=== PATIENT | female | born 1980 | race African-American/Black ===

== ENCOUNTER 2017-10-10 12:22 | Emergency (ER) | payer OTHER ==
[~2017-10-10] VITALS: Ht 167.6 cm; Wt 109.0 kg
[~2017-10-10 12:22] MED LIST: AMOXICILLIN875 MG PO; METFORMIN500 M2 PO; ULTRAM50 MG PO
[2017-10-10] MEDS ORDERED: MOTRIN400 MG PO (12:55)
[2017-10-10 13:05] VITALS: BP 143/84
== END 2017-10-10 13:05 | disposition home or self-care (01) | DRG 563 ==
LOC: ED 12:22
PROC: 2W3UX1Z Immobilization of Right Toe using Splint (ICD-10-PCS; principal; 2017-10-10)
DX: S92.511A Displaced fracture of proximal phalanx of right lesser toe(s), initial encounter for closed fracture (principal); F41.9 Anxiety disorder, unspecified; J45.909 Unspecified asthma, uncomplicated; W51.XXXA Accidental striking against or bumped into by another person, initial encounter; Y92.009 Unspecified place in unspecified non-institutional (private) residence as the place of occurrence of the external cause

== ENCOUNTER 2019-10-19 22:46 | Emergency (ER) | payer BC ==
[~2019-10-19] VITALS: Ht 167.6 cm; Wt 118.2 kg
[~2019-10-19 22:46] MED LIST changes: +MOTRIN400 MG PO
[2019-10-20] MEDS ORDERED: TAM75CAP PO (00:47)
[2019-10-20 00:52] VITALS: BP 138/70
== END 2019-10-20 00:52 | disposition home or self-care (01) | DRG 153 ==
LOC: ED 22:46
DX: J11.1 Influenza due to unidentified influenza virus with other respiratory manifestations (principal)

== ENCOUNTER 2022-04-23 18:06 | Observation (INO) | payer BC ==
[~2022-04-23] VITALS: Ht 167.6 cm; Wt 122.0 kg
[2022-04-23] VITALS (10 sets, daily range): BP systolic 126–169; BP diastolic 76–106
[~2022-04-23 18:06] MED LIST changes: +TAM75CAP PO
[2022-04-23 19:13] LABS: HEMATOCRIT 38.7 % (37.0-47.0); HEMOGLOBIN 12.2 g/dl (12.0-16.0); IMMATURE GRANULOCYTES 0.1 % (0.0-5.0); MEAN CORPUSCULAR HGB 27.6 pG CALC (26.0-32.0); MEAN CORPUSCULAR HGB CONC 31.5 g/dL CAL (32.0-36.0); NEUT# 5.16 thou/uL (2.00-7.15); RED BLOOD COUNT 4.42 mill/uL (4.20-5.60); RED CELL DISTRI WIDTH 12.8 % (11.5-15.5)
[2022-04-23 19:16] LABS: MEAN CELL VOLUME 87.6 fL CALC (80.0-100.0)
[2022-04-23 19:18] LABS: ALBUMIN 3.9 g/dL (3.2-5.0); ALKALINE PHOSPHATASE 62 u/l (38-126); BUN 11 mg/dL (7-17); BUN/CREATININE RATIO 11 (12-20 (CALC)); CHLORIDE 105 mmol/l (95-108); GFR FOR AFR.AMER. > 60 ML/MIN (>=60 (CALC)); GFR OTHER RACES > 60 ML/MIN (>=60 (CALC)); LIPASE 204 u/l (23-300); POTASSIUM 3.7 mmol/l (3.5-5.1); SGOT/AST 17 u/l (14-36); SODIUM 139 mmol/l (137-146); TOTAL PROTEIN 7.2 g/dL (6.3-8.2)
[2022-04-23 19:25] LABS: ANION GAP 12 (6-22 (CALC)); BILIRUBIN, TOTAL 0.1 mg/dL (0.0-1.4); CARBON DIOXIDE 26 mmol/l (22-30); INTERNATIONAL NORMALIZED RATIO 0.9 RATIO (0.7-1.3); PROTHROMBIN TIME 9.9 SECONDS (9.0-12.5)
[2022-04-23 19:30] LABS: MYOGLOBIN 30 ng/mL (0 - 62)
[2022-04-23 19:34] LABS: URINE BILIRUBIN - DIPSTICK NEGATIVE (NEGATIVE); URINE BLOOD DIPSTICK TRACE-INTACT (NEGATIVE); URINE COLOR YELLOW; URINE GLUCOSE - DIPSTICK NEGATIVE (NEGATIVE); URINE KETONE NEGATIVE (NEGATIVE); URINE LEUK ESTERASE NEGATIVE (NEGATIVE); URINE PROTEIN - DIPSTICK NEGATIVE (NEG-TRACE); URINE SPECIFIC GRAVITY 1.025; URINE UROBILINOGEN - DIPSTICK 0.2 E.U./dL (0.2)
[2022-04-23 19:41] LABS: URINE NITRITE - DIPSTICK NEGATIVE (Negative)
[2022-04-23 20:07] LABS: ACT PARTIAL THROMBO TIME 26.3 SECONDS (20.0-32.5)
[2022-04-23 20:18] LABS: D-DIMER 0.38 mg/L (0.19-0.60)
[2022-04-24 00:19] VITALS: BP 128/79
[2022-04-24 04:07] VITALS: BP 139/90
[2022-04-24 04:43] LABS: CHOLESTEROL HDL RATIO 3.5 (<4.4 (CALC))
[2022-04-24 06:51] VITALS: BP 141/83
[2022-04-24] MEDS ORDERED: NEXIUM20 MG PO (09:22)
[2022-04-24] MEDS ORDERED: OZEMPIC2 MG/1.5 M IJ (09:23)
[2022-04-24] MEDS ORDERED: ZYRTEC10 M5 PO (09:24)
[2022-04-24 10:34] VITALS: BP 142/93
[2022-04-24 13:05] VITALS: BP 122/87
== END 2022-04-24 14:54 | disposition home or self-care (01) | DRG 392 ==
LOC: ED 18:06 → ED-I 20:47 → ED 21:00 → MS2 21:01
PROVIDERS: Family Medicine; Nurse Practitioner; ADMIT Internal Medicine; ATTEND Internal Medicine
PROC: 0DB98ZX Excision of Duodenum, Via Natural or Artificial Opening Endoscopic, Diagnostic (ICD-10-PCS; principal; 2022-04-24)
PROC: 0DB78ZX Excision of Stomach, Pylorus, Via Natural or Artificial Opening Endoscopic, Diagnostic (ICD-10-PCS; 2022-04-24)
PROC: 0DB58ZX Excision of Esophagus, Via Natural or Artificial Opening Endoscopic, Diagnostic (ICD-10-PCS; 2022-04-24)
DX: K21.00 Gastro-esophageal reflux disease with esophagitis, without bleeding (principal); K29.50 Unspecified chronic gastritis without bleeding; K29.80 Duodenitis without bleeding; K44.9 Diaphragmatic hernia without obstruction or gangrene; J45.909 Unspecified asthma, uncomplicated; G47.30 Sleep apnea, unspecified; Z87.19 Personal history of other diseases of the digestive system; Z20.822 Contact with and (suspected) exposure to COVID-19
CPT/HCPCS: G0378; S0164

== ENCOUNTER 2022-07-01 17:28 | Emergency (ER) | payer OTHER, BC ==
[~2022-07-01] VITALS: Ht 167.6 cm; Wt 122.7 kg
[2022-07-01] VITALS (12 sets, daily range): BP systolic 113–149; BP diastolic 73–88
[~2022-07-01 17:28] MED LIST changes: +NEXIUM20 MG PO; +OZEMPIC2 MG/1.5 M IJ; +ZYRTEC10 M5 PO
[2022-07-01 18:28] LABS: HEMOGLOBIN 12.4 g/dl (12.0-16.0); IMMATURE GRANULOCYTES 0.2 % (0.0-5.0); MEAN CELL VOLUME 86.7 fL CALC (80.0-100.0); MEAN CORPUSCULAR HGB 27.6 pG CALC (26.0-32.0); MEAN CORPUSCULAR HGB CONC 31.8 g/dL CAL (32.0-36.0); NEUT# 2.26 thou/uL (2.00-7.15); RED BLOOD COUNT 4.5 mill/uL (4.20-5.60); RED CELL DISTRI WIDTH 12.9 % (11.5-15.5)
[2022-07-01 18:33] LABS: ALBUMIN 3.6 g/dL (3.2-5.0); ALKALINE PHOSPHATASE 57 u/l (38-126); ANION GAP 11 (6-22 (CALC)); BUN 12 mg/dL (7-17); BUN/CREATININE RATIO 11 (12-20 (CALC)); CARBON DIOXIDE 28 mmol/l (22-30); CHLORIDE 105 mmol/l (95-108); CREATININE 1.1 mg/dL (0.5-1.0); GFR FOR AFR.AMER. > 60 ML/MIN (>=60 (CALC)); GFR OTHER RACES 55 ML/MIN (>=60 (CALC)); POTASSIUM 3.9 mmol/l (3.5-5.1); SGOT/AST 16 u/l (14-36); SODIUM 140 mmol/l (137-146); TOTAL PROTEIN 6.4 g/dL (6.3-8.2)
[2022-07-01 18:46] LABS: BILIRUBIN, TOTAL 0.2 mg/dL (0.0-1.4)
[2022-07-01] MEDS ORDERED: PAXLOVID PO (20:03)
[2022-07-01] MEDS ORDERED: ONDANSETRON4 MG PO (20:03)
[2022-07-01] MEDS ORDERED: MEDDOSEPAK PO (20:03)
== END 2022-07-01 20:30 | disposition home or self-care (01) | DRG 179 ==
LOC: ED 17:28
PROVIDERS: Internal Medicine
DX: U07.1 COVID-19 (principal); R06.02 Shortness of breath; R05.9 Cough, unspecified; R06.2 Wheezing; R11.0 Nausea; R19.7 Diarrhea, unspecified; R52 Pain, unspecified; J45.909 Unspecified asthma, uncomplicated

== ENCOUNTER 2022-11-16 16:21 | Emergency (ER) | payer BC ==
[~2022-11-16] VITALS: Ht 167.6 cm; Wt 122.4 kg
[~2022-11-16 16:21] MED LIST changes: +MEDDOSEPAK PO; +ONDANSETRON4 MG PO; +PAXLOVID PO
[2022-11-16 16:26] VITALS: BP 136/89
[2022-11-16 16:45] VITALS: BP 140/89
[2022-11-16 17:00] VITALS: BP 128/94
[2022-11-16] MEDS ORDERED: BENZONATATE200 MG PO (17:25)
[2022-11-16] MEDS ORDERED: MEDDOSEPAK PO (17:25)
[2022-11-16] MEDS ORDERED: ZPAK PO (17:25)
[2022-11-16 17:30] VITALS: BP 120/81
[2022-11-16 18:00] VITALS: BP 115/70
[2022-11-16 18:13] VITALS: BP 115/70
== END 2022-11-16 18:19 | disposition home or self-care (01) | DRG 153 ==
LOC: ED 16:21
DX: J06.9 Acute upper respiratory infection, unspecified (principal); K21.9 Gastro-esophageal reflux disease without esophagitis